=== PATIENT | male | born 1995 | race Caucasian/White ===

== ENCOUNTER 2022-04-25 11:29 | Emergency (ER) | payer BC, OTHER ==
[2022-04-25 11:42] VITALS: BP 101/66; PULSE 102; RESP 18; TEMP 98.1; BMI 22.1
== END 2022-04-25 12:55 | disposition home or self-care (01) ==
LOC: JER 11:29
DX: R05.1 Acute cough (principal); J02.9 Acute pharyngitis, unspecified; J09.X2 Influenza due to identified novel influenza A virus with other respiratory manifestations
CPT/HCPCS: 0241U-QW; 99283-25